=== PATIENT | female | born 1960 | race Caucasian/White ===

== ENCOUNTER 2016-11-23 12:21 | Emergency (ER) | payer SELFPAY ==
[~2016-11-23] VITALS: Ht 165.1 cm; Wt 78.2 kg
[2016-11-23 13:05] LABS: BASOPHILS % (AUTO) 1 % (0-2); EOSINOPHILS % (AUTO) 0 % (0-4); LYMPHOCYTES # (AUTO) 1.8 X10^3; MEAN CORPUSCULAR HEMOGLOBIN 31.2 PG (26.0-34.0); MEAN CORPUSCULAR HGB CONC 33.5 g/dL (31.0-37.0); MEAN CORPUSCULAR VOLUME 93 FL (80-100); MEAN PLATELET VOLUME 12.4 FL (6.0-9.5); MONOCYTES # (AUTO) 0.3 X10^3; MONOCYTES % (AUTO) 6 % (3-11); NEUTROPHILS # (AUTO) 2.8 X10^3; NEUTROPHILS % (AUTO) 56 % (51-67); PLATELET COUNT 152 10^3uL (150-450); WHITE BLOOD COUNT 4.95 10^3uL (4.0-11.0)
[2016-11-23 13:20] LABS: ALBUMIN 4.2 g/dL (3.4-5.0); ANION GAP 14.4 MEQ/L (3-15); CALCULATED IONIZED CALCIUM 3.8 mg/dL (3.8-4.6); TOTAL PROTEIN 8.2 g/dL (6.4-8.5)
[2016-11-23 13:20] LABS: INFLUENZA VIRUS TYPE A ANTIBOD Negative (NEGATIVE); INFLUENZA VIRUS TYPE B ANTIBOD Positive (NEGATIVE)
[2016-11-23 13:49] VITALS: BP 168/81
== END 2016-11-23 13:51 | disposition home or self-care (01) ==
LOC: ED 12:24
DX: J10.2 Influenza due to other identified influenza virus with gastrointestinal manifestations (principal)
CPT/HCPCS: 36415; 71020; 80053; 85025; 86140; 87502; 99282; 99283